=== PATIENT | male | born 1965 | race Caucasian/White ===

== ENCOUNTER 2017-11-14 10:30 | Outpatient (CLI) | payer SELFPAY ==
[2017-11-14 11:54] LABS: ALBUMIN 3.8 g/dL (3.4-5.0); BILIRUBIN,DIRECT 0.1 mg/dL (0.0-0.2); BILIRUBIN,TOTAL 0.5 mg/dL (0.2-1.0)
== END 2017-11-14 23:59 | disposition home or self-care (01) ==
LOC: LAB 10:30
PROVIDERS: ATTEND Emergency Medicine
DX: E78.5 Hyperlipidemia, unspecified (principal)
CPT/HCPCS: 36415; 80061-TC; 80076-TC